=== PATIENT | male | born 1975 | race African-American/Black ===

== ENCOUNTER 2018-05-23 01:11 | Emergency (ER) | payer SELFPAY ==
[~2018-05-23] VITALS: Ht 188 cm; Wt 134.3 kg
[2018-05-23 01:16] VITALS: Ht 188 cm; Wt 134.3 kg
[2018-05-23 02:13] VITALS: BP 137/94
== END 2018-05-23 02:13 | disposition home or self-care (01) ==
LOC: ED 01:11
DX: S41.051A Open bite of right shoulder, initial encounter (principal); Y04.1XXA Assault by human bite, initial encounter; I10 Essential (primary) hypertension; J45.909 Unspecified asthma, uncomplicated; Z88.0 Allergy status to penicillin
CPT/HCPCS: 90714

== ENCOUNTER 2019-10-21 06:41 | Emergency (ER) | payer OTHER ==
[~2019-10-21] VITALS: Ht 188 cm; Wt 131.1 kg
[2019-10-21 06:44] VITALS: Ht 188 cm; Wt 131.1 kg
[2019-10-21 08:30] LABS: BASOPHIL % 0.6 % (0-2); PLATELET COUNT 199 x10^3mcL (130-400)
[2019-10-21 08:55] LABS: ALBUMIN 4.1 g/dL (3.4-5.0); CARBON DIOXIDE 27 mmol/L (21-32); CHLORIDE SERUM 105 mmol/L (98-107); CREATININE SERUM 1.1 mg/dL (0.7-1.3); GFR1 > 60 mL/min; GLUCOSE SERUM 112 mg/dL (74-106); POTASSIUM SERUM 4.1 mmol/L (3.5-5.1); SODIUM SERUM 142 mmol/L (136-145); TOTAL PROTEIN, SERUM 7.3 g/dL (6.4-8.2)
[2019-10-21 08:56] LABS: ALKALINE PHOSPHATASE 69 U/L (46-116); ALT/SGPT 40 U/L (16-63); AST/SGOT 18 U/L (15-37); BILIRUBIN TOTAL 0.6 mg/dL (0.20-1.00); LIPASE 143 IU/L (73-393)
[2019-10-21 09:15] VITALS: BP 146/88
== END 2019-10-21 09:15 | disposition home or self-care (01) ==
LOC: ED 06:41
PROVIDERS: Emergency Medicine
DX: K29.70 Gastritis, unspecified, without bleeding (principal); I10 Essential (primary) hypertension; J45.909 Unspecified asthma, uncomplicated; Z88.0 Allergy status to penicillin
CPT/HCPCS: 36415; Q0092